=== PATIENT | female | born 1990 | race Caucasian/White ===

== ENCOUNTER 2016-12-14 20:59 | Emergency (ER) | payer OTHER ==
[~2016-12-14] VITALS: Ht 170.2 cm; Wt 128.9 kg
[2016-12-14] MEDS ORDERED: SODIUM CHLORIDE FLUSH 3 ML SYR IV PRN (21:30)
[2016-12-14] MEDS ORDERED: LORazepam 2 MG/ML (ATIVAN) 1 ML VIAL IV ONE (21:30)
[2016-12-14] MEDS ORDERED: SODIUM CHLORIDE FLUSH 10 ML SYR IV PRN (21:30)
[2016-12-14] MEDS ORDERED: ONDANSETRON 2 MG/ML (Z0FRAN) 2 ML VIAL IV ONE (21:30)
[2016-12-14 21:47] LABS: MEAN CORPUSCULAR HEMOGLOBIN 30.1 PG (26.0-34.0); MEAN CORPUSCULAR HGB CONC 35.1 g/dL (31.0-37.0); MEAN CORPUSCULAR VOLUME 86 FL (80-100); MEAN PLATELET VOLUME 9.8 FL (6.0-9.5); PLATELET COUNT 225 10^3uL (150-450)
[2016-12-14 22:12] LABS: ALBUMIN 4.5 g/dL (3.4-5.0); ALKALINE PHOSPHATASE 59 U/L (38-126); ANION GAP 15.6 MEQ/L (3-15); BUN/CREATININE RATIO 16 (10-20); CALCULATED IONIZED CALCIUM 3.5 mg/dL (3.8-4.6); TOTAL PROTEIN 8.9 g/dL (6.4-8.5)
[2016-12-14 22:20] LABS: ANISOCYTOSIS SLIGHT; BAND NEUTROPHILS % 0 % (0-6); EOSINOPHILS % 0 % (0-4); LYMPHOCYTES # 5.9 #; MONOCYTES # 0.5 #; MONOCYTES % 5 % (3-11); POIKILOCYTOSIS SLIGHT; RBC MORPH SEE REFERENCE (NORMAL); SEGMENTED NEUTROPHILS % 38 % (51-67); TOTAL CELLS COUNTED 100
[2016-12-14 23:24] VITALS: BP 118/70
== END 2016-12-14 23:20 | disposition home or self-care (01) ==
LOC: ED 21:00
DX: F41.9 Anxiety disorder, unspecified (principal); F17.210 Nicotine dependence, cigarettes, uncomplicated; R07.89 Other chest pain
CPT/HCPCS: 36415; 71010; 80053; 84484; 85025; 85379; 93005; 96361; 96374; 96375; 99283; J2060; J2405; J7030; 93010; 99284

== ENCOUNTER → 2016-12-21 | Outpatient (REF) | payer OTHER ==
[2016-12-21 12:21] LABS: BILIRUBIN,URINE Negative (Negative); COLOR,URINE Yellow; GLUCOSE, URINE (UA) Negative (Negative); LEUKOCYTE ESTERASE, URINE Trace (Negative); PH,URINE 6.5 (5.0 - 8.0); UROBILINOGEN,URINE 0.2 mg/dL (0.2-1.0)
[2016-12-21 12:23] LABS: CLARITY,URINE Slightly Cloudy; URINE CENTRIFUGED VOLUME 12 mL
== END ==
LOC: LAB 11:57
PROVIDERS: ATTEND Obstetrics & Gynecology
DX: N92.6 Irregular menstruation, unspecified (principal)
CPT/HCPCS: 81003; 81015; 87210

== ENCOUNTER 2017-01-28 12:03 | Emergency (ER) | payer OTHER ==
[~2017-01-28] VITALS: Ht 170.2 cm; Wt 129.0 kg
[~2017-01-28 12:03] MED LIST: AZIT250T81 PO; BUSP10TA95 PO; DOCU-34 PO; DOXY25TA35 PO; DVL500TSR PO; METH40VI; MINO100C2 PO; NFPROP80LA PO; NORG1TAB14 PO; OMEP20TA33 PO; ONDN4T PO; PRED20TA PO; SERT50TA2 PO
[2017-01-28 12:06] VITALS: BP 155/101
--- OUTSIDE RECORDS SUMMARY | 2017-01-28 12:08 | XMS REPORT | Continuity of Care Document ---
Author Author [facility] Address Unknown Phone Unavailable Allergies Active Description Code Type Severity Reaction Onset Reported/Identified Relationship to Patient Clinical Status Yes No Known Drug Allergies [id number] Drug Allergy Unknown N/ A 12/14/2016 Medications Problems Date Dx Coded Attending Type Code Diagnosis Diagnosed By 07/12/2012 Ot 305.00 07/12/2012 Ot 305.1 07/12/2012 Ot 780.4 07/12/2012 Ot 780.79 07/07/2015 ELE TOMLINSON, ELLEN Salazar Ot I10 ESSENTIAL (PRIMARY) HYPERTENSION 07/07/2015 ELE TOMLINSON, ELLEN Salazar Ot R51 HEADACHE 07/07/2015 ELE TOMLINSON, ELLEN Salazar Ot Z87.891 PERSONAL HISTORY OF NICOTINE DEPENDENCE 06/08/2016 MARIZOL DOVER Ot K52.9 NONINFECTIVE GASTROENTERITIS AND COLITIS 06/08/2016 MARIZOL DOVER Ot S56.911A STRAIN OF [facility]/FASC/TEND AT FORARM 06/08/2016 MARIZOL DOVER Ot X58.XXXA EXPOSURE TO OTHER SPECIFIED FACTORS, INI 06/22/2016 MARIZOL DOVER Ot K52.9 NONINFECTIVE GASTROENTERITIS AND COLITIS 06/22/2016 MARIZOL DOVER Ot S56.911A STRAIN OF [facility]/FASC/TEND AT FORARM 06/22/2016 MARIZOL DOVER Ot X58.XXXA EXPOSURE TO OTHER SPECIFIED FACTORS, INI 07/17/2016 KAMALA TOMLINSON, MEL Raymundo Ot R10.84 GENERALIZED ABDOMINAL PAIN 07/17/2016 KAMALA TOMLINSON, MEL Raymundo Ot R13.19 OTHER DYSPHAGIA 07/17/2016 MEL WRAY MD Ot Z01.812 ENCOUNTER FOR PREPROCEDURAL LABORATORY E 07/27/2016 KAMALA TOMLINSON, MEL Raymundo Ot R10.84 GENERALIZED ABDOMINAL PAIN 07/27/2016 MEL WRAY MD Ot R13.19 OTHER DYSPHAGIA 07/27/2016 MEL WRAY MD Ot Z01.812 ENCOUNTER FOR PREPROCEDURAL LABORATORY E 09/13/2016 CHARLETTE SHERWOOD JOSE Akins Ot Z79.899 OTHER [employer] (CURRENT) DRUG THERAPY 10/05/2016 ANTON DOVERICA D Ot K52.9 NONINFECTIVE GASTROENTERITIS AND COLITIS 10/05/2016 CHRISTINE SHERWOOD MARIZOL D Ot S56.911A STRAIN OF [facility]/FASC/TEND AT FORARM 10/05/2016 ANTON DOVERICA D Ot X58.XXXA EXPOSURE TO OTHER SPECIFIED FACTORS, INI 10/05/2016 MEL WRAY MD Ot R10.84 GENERALIZED ABDOMINAL PAIN 10/05/2016 MEL WRAY MD Ot R13.19 OTHER DYSPHAGIA 10/05/2016 MEL WRAY MD Ot Z01.812 ENCOUNTER FOR PREPROCEDURAL LABORATORY E 10/05/2016 CHARLETTE SHERWOOD JOSE Akins Ot Z79.899 OTHER [employer] (CURRENT) DRUG THERAPY 10/10/2016 ANTON DOVERICA D Ot R05 COUGH 10/10/2016 ANTON DOVERICA D Ot R09.89 OTH SYMPTOMS AND SIGNS INVOLVING THE CIR 11/01/2016 CHRISTINE SHERWOOD MARIZOL D Ot R05 COUGH 11/01/2016 CHRISTINE SHERWOOD MARIZOL D Ot R09.89 OTH SYMPTOMS AND SIGNS INVOLVING THE CIR 12/14/2016 RAFAT TOMLINSON, TIGRE Ot F17.210 NICOTINE DEPENDENCE, CIGARETTES, UNCOMPL 12/14/2016 RAFAT TOMLINSON, TIGRE Ot F41.9 ANXIETY DISORDER, UNSPECIFIED 12/14/2016 RAFAT TOMLINSON, TIGRE Ot R07.89 OTHER CHEST PAIN 12/14/2016 TIGRE DOUGLASS MD Ot R07.9 CHEST PAIN, UNSPECIFIED 12/15/2016 ANTON DOVERICA D Ot K52.9 NONINFECTIVE GASTROENTERITIS AND COLITIS 12/15/2016 ANTON DOVERICA D Ot S56.911A STRAIN OF [facility]/FASC/TEND AT FORARM 12/15/2016 ANTON DOVERICA D Ot X58.XXXA EXPOSURE TO OTHER SPECIFIED FACTORS, INI 12/15/2016 MEL WRAY MD Ot R10.84 GENERALIZED ABDOMINAL PAIN 12/15/2016 MEL WRAY MD Ot R13.19 OTHER DYSPHAGIA 12/15/2016 KAMALA TOMLINSON, MEL W Ot Z01.812 ENCOUNTER FOR PREPROCEDURAL LABORATORY E 12/15/2016 CHARLETTE SHERWOOD, JOSE Akins Ot Z79.899 OTHER [employer] (CURRENT) DRUG THERAPY 12/15/2016 MARIZOL DOVER Ot R05 COUGH 12/15/2016 MARIZOL DOVER Ot R09.89 OTH SYMPTOMS AND SIGNS INVOLVING THE CIR 12/18/2016 TIGRE DOUGLASS MD, Ot F17.210 NICOTINE DEPENDENCE, CIGARETTES, UNCOMPL 12/18/2016 TIGRE DOUGLASS MD, Ot F41.9 ANXIETY DISORDER, UNSPECIFIED 12/18/2016 TIGRE DOUGLASS MD, Ot R07.89 OTHER CHEST PAIN 12/18/2016 TIGRE DOUGLASS MD, Ot R07.9 CHEST PAIN, UNSPECIFIED 12/25/2016 LEROY DASILVA MD, Ot N92.6 IRREGULAR MENSTRUATION, UNSPECIFIED 01/03/2017 LEROY DASILVA MD, Ot N92.6 IRREGULAR MENSTRUATION, UNSPECIFIED Procedures Results Test Result Range Choriogonadotropin ( test) - 07/11/16 10:20 Choriogonadotropin ( test) Negative Negative Serum or plasma valproate measurement (mass/volume) - 08/24/16 11:56 Serum or plasma valproate measurement (mass/volume) 11 50-100 Complete blood count (CBC) with automated white blood cell (WBC) differential - 12/14/16 21:28 Blood automated leukocyte count 10.30 4.0-11.0 Erythrocytes 4.91 4.00-5.00 12.0-16.0;g/dL 14.8 12.0-15.5 Hematocrit 42.20 35.00-45.00 Automated erythrocyte mean corpuscular volume 86 80-100 Mean corpuscular hemoglobin (MCH) determination 30.1 26.0-34.0 Automated erythrocyte mean corpuscular hemoglobin concentration measurement ( mass/volume) 35.1 31.0-37.0 Erythrocyte distribution width 12.1 11.8 -15.6 Automated blood platelet count 225 150- 450 Automated blood platelet mean volume measurement 9.8 6.0-9.5 D-dimer test - 12/14/16 21:28 D-dimer test 294 0-500 Complete blood count, platelets with manual differential - 12/14/16 21:28 Total cell count 100 Blood segmented neutrophils percentage 38 51-67 Blood band neutrophil count as percentage of total leukocytes 0 0-6 LYMPHOCYTES % 57 20-46 Automated monocyte percentage 5 3-11 Eosinophil count auto 0 0-4 Basophils 0 0-2 Manual blood metamyelocytes/100 leukocytes 0 0-1 NEUTROPHILS(SEG) 3.9 NEUTROPHILS # BANDS 0.0 Blood lymphocytes manual count (number/volume) 5.9 Automated blood monocyte count 0.5 Blood absolute eosinophil count 0.0 Basophils 0.0 Erythrocyte morphology assessment SEE REFERENCE NORMAL Blood poikilocytosis detection by light microscopy SLIGHT Blood anisocytosis detection SLIGHT Comprehensive metabolic panel - 12/14/16 21:28 Sodium measurement 89 70-110 CARBON DIOXIDE 22 22-29 Serum or plasma anion gap 15.6 3-15 BLOOD UREA NITROGEN 12 7-18 CREATININE SERUM 0.75 0.6-1.2 Brucella species antibody panel (IgG, IgM) 16 10-20 Estimated glomerular filtration rate (GFR) 112.2 Estimated glomerular filtration rate (GFR) non- 92.7 OSMOLALITY,CALCULATED 267 280-300 CALCIUM 9.2 8.8-10.8 Calculated ionized calcium measurement 3.5 3.8-4.6 BILIRUBIN,TOTAL 1.4 0.1-1.0 Serum or plasma alkaline phosphatase measurement 59 38-126 ASPARTATE AMINO TRANSFERASE 51 15-37 ALANINE AMINOTRANSFERASE 29 30-65 Serum or plasma total protein measurement 8.9 6.4-8.5 Serum or plasma albumin measurement 4.5 3.4-5.0 Serum or plasma albumin/globulin mass ratio 1.022 1.1-1.8 TROPONIN I* - 12/14/16 21:28 TROPONIN I < 0.012 0.010-0.080 UA (urinalysis) - 12/21/16 10:55 COLLECTION METHOD CLEAN CATCH Color of urine by auto Yellow Urine appearance determination Slightly Cloudy Urine pH measurement by automated test strip 6.5 5.0 - 8.0 Specific gravity of urine by automated test strip <= 1.005-1.030 PROTEIN, URINE Negative Urine glucose detection by automated test strip Negative Negative Urine erythrocytes count by automated test strip (number/volume) Negative Negative Urine ketones detection by automated test strip Negative Negative NITRITE,URINE Negative Negative Urine total bilirubin detection by automated test strip Negative Negative Urine urobilinogen measurement by automated test strip (mass/volume) 0.2 0.2-1.0 Urine leukocyte esterase detection by dipstick Trace Negative Microscopic examination of urine - 12/21/16 10:55 Urine volume measurement 12 mL Urine erythrocytes detection by automated method 2-5 Automated urine sediment leukocyte count by microscopy (number/high power field ) Bacteria 2+ Negative SQUAMOUS EPITHELIAL CELL,UR 50-100 Encounters ACCT No. Visit Date/Time Discharge Status Pt. Type Provider Facility Loc./Unit Complaint [id number] 12/14/2016 21:00:00 2016 23:20:00 DIS Emergency RAFAT TOMLINSON, [facility] ED [id number] 07/07/2015 01:37:00 2014 03:05:00 DIS Emergency ELE TOMLINSON, [facility] ED HSB [id number] 12/21/2016 11:57:00 ACT Outpatient VIDYA TOMLINSON, [facility] LAB LAB DROP OFF DR DASILVA [id number] 10/05/2016 15:02:00 ACT Outpatient CHRISTINE SHERWOOD [facility] [id number] 08/24/2016 11:51:00 ACT Outpatient CHARLETTE SHERWOOD, [facility] LAB [id number] 07/11/2016 08:58:00 [facility] / DYSPHAGIA [id number] 05/24/2016 19:49:00 ACT Outpatient CHRISTINE SHERWOOD [facility] [id number] 07/12/2012 13:37:00 Document Registration
--- OUTSIDE RECORDS SUMMARY | 2017-01-28 12:09 | XMS REPORT | Continuity of Care Document ---
Author Author [facility] Address Unknown Phone Unavailable Allergies Active Description Code Type Severity Reaction Onset Reported/Identified Relationship to Patient Clinical Status Yes No Known Drug Allergies [id number] Drug Allergy Unknown N/ A 12/14/2016 Medications [...] 06/08/2016 MARIZOL DOVER Ot S56.911A STRAIN OF [facility]/FASC/TEND AT FORARM 06/08/2016 MARIZOL DOVER Ot X58.XXXA EXPOSURE TO OTHER SPECIFIED FACTORS, INI 06/22/2016 MARIZOL DOVER Ot K52.9 NONINFECTIVE GASTROENTERITIS AND COLITIS 06/22/2016 MARIZOL DOVER Ot S56.911A STRAIN OF [facility]/FASC/TEND AT FORARM 06/22/2016 MARIZOL DOVER Ot X58.XXXA [...] CHARLETTE SHERWOOD JOSE Akins Ot Z79.899 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 10/05/2016 ANTON DOVERICA D Ot K52.9 NONINFECTIVE GASTROENTERITIS AND COLITIS 10/05/2016 CHRISTINE SHERWOOD MARIZOL D Ot S56.911A STRAIN OF [facility]/FASC/TEND AT FORARM 10/05/2016 ANTON DOVERICA D Ot X58.XXXA EXPOSURE TO OTHER SPECIFIED FACTORS, INI 10/05/2016 MEL WRAY MD Ot R10.84 GENERALIZED ABDOMINAL PAIN 10/05/2016 MEL WRAY MD Ot R13.19 OTHER DYSPHAGIA 10/05/2016 MEL WRAY MD Ot Z01.812 ENCOUNTER FOR PREPROCEDURAL LABORATORY E 10/05/2016 CHARLETTE SHERWOOD JOSE Akins Ot Z79.899 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 10/10/2016 ANTON DOVERICA D Ot R05 COUGH 10/10/2016 ANTON DOVERICA D Ot R09.89 OTH SYMPTOMS AND SIGNS INVOLVING THE CIR 11/01/2016 CHRISTINE SHERWOOD MARIZOL D Ot R05 COUGH 11/01/2016 CHRISTINE SHERWOOD MARIZOL D Ot R09.89 OTH SYMPTOMS AND SIGNS INVOLVING THE CIR 12/14/2016 RFAAT TOMLINSON, TIGRE Ot F17.210 NICOTINE DEPENDENCE, CIGARETTES, UNCOMPL 12/14/2016 RAFAT TOMLINSON, TIGRE Ot F41.9 ANXIETY DISORDER, UNSPECIFIED 12/14/2016 RAFAT TOMLINSON, TIGRE Ot R07.89 OTHER CHEST PAIN 12/14/2016 TIGRE DOUGLASS MD Ot R07.9 CHEST PAIN, UNSPECIFIED 12/15/2016 ANTON DOVERICA D Ot K52.9 NONINFECTIVE GASTROENTERITIS AND COLITIS 12/15/2016 ANTON DOVERICA D Ot S56.911A STRAIN OF [facility]/FASC/TEND AT FORARM 12/15/2016 ANTON DOVERICA D Ot X58.XXXA EXPOSURE TO OTHER SPECIFIED FACTORS, INI 12/15/2016 MEL WRAY MD Ot R10.84 GENERALIZED ABDOMINAL PAIN 12/15/2016 MEL WRAY MD Ot R13.19 OTHER DYSPHAGIA 12/15/2016 KAMALA TOMLINSON, MEL W Ot Z01.812 ENCOUNTER FOR PREPROCEDURAL LABORATORY E 12/15/2016 CHARLETTE SHERWOOD, JOSE Akins Ot Z79.899 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 12/15/2016 MARIZOL DOVER Ot [...] Status Pt. Type Provider Facility Loc./Unit Complaint [id number] 12/14/2016 21:00:00 2016 23:20:00 DIS Emergency RAFAT TOMLINSON, [facility] ED [id number] 07/07/2015 01:37:00 2014 03:05:00 DIS Emergency ELE TOMLINSON, [facility] ED HSB [id number] 12/21/2016 11:57:00 ACT Outpatient VIDYA TOMLINSON, [facility] LAB LAB DROP OFF DR DASILVA [id number] 10/05/2016 15:02:00 ACT Outpatient CHRISTINE SHERWOOD [facility] [id number] 08/24/2016 11:51:00 ACT Outpatient CHARLETTE SHERWOOD, [facility] LAB [id number] 07/11/2016 08:58:00 [facility] / DYSPHAGIA [id number] 05/24/2016 19:49:00 ACT Outpatient CHRISTINE SHERWOOD [facility] [id number] 07/12/2012 13:37:00 Document Registration
[2017-01-28 12:30] LABS: BASOPHILS % (AUTO) 1 % (0-2); EOSINOPHILS # (AUTO) 0.1 10^3uL; EOSINOPHILS % (AUTO) 1 % (0-4); LYMPHOCYTES # (AUTO) 3.8 X10^3; MEAN CORPUSCULAR HGB CONC 35.1 g/dL (31.0-37.0); MEAN CORPUSCULAR VOLUME 86 FL (80-100); MEAN PLATELET VOLUME 9.5 FL (6.0-9.5); MONOCYTES # (AUTO) 0.7 X10^3; MONOCYTES % (AUTO) 9 % (3-11); NEUTROPHILS # (AUTO) 3.4 X10^3; NEUTROPHILS % (AUTO) 42 % (51-67); PLATELET COUNT 242 10^3uL (150-450); WHITE BLOOD COUNT 8.03 10^3uL (4.0-11.0)
--- NOTE | 2017-01-28 12:30 | NUR ---
Patient's friend (Gudelia) in room with patient. Friend is very supportive, attentive to pt, and appears responsible. Friend verbalizes that she is willing to have patient stay with her and to assist her through this situation.
--- NOTE | 2017-01-28 12:30 | NUR ---
Large styrofoam glass of Iced Water provided to patient after michael received from Dr. Long.
[2017-01-28 12:33] LABS: BILIRUBIN,URINE Negative (Negative); CLARITY,URINE Clear; COLOR,URINE Yellow; GLUCOSE, URINE (UA) Negative (Negative); LEUKOCYTE ESTERASE ,URINE Trace (Negative); PH,URINE 6.5 (5.0 - 8.0); UROBILINOGEN,URINE 0.2 mg/dL (0.2-1.0)
[2017-01-28 12:39] LABS: RBC,URINE 0-2 /HPF; URINE CENTRIFUGED VOLUME 12 mL
[2017-01-28 12:41] LABS: AMPHETAMINE SCREEN, URINE Negative (Negative); CANNABINOID SCREEN, URINE Negative (Negative); METHAMPHETAMINE SCREEN URINE S NEGATIVE (NEGATIVE); OPIATE SCREEN URINE Negative (Negative); PROPOXYPHENE STAT NEGATIVE (NEGATIVE)
[2017-01-28 12:45] LABS: ALBUMIN 4.5 g/dL (3.4-5.0); ALKALINE PHOSPHATASE 60 U/L (38-126); BUN/CREATININE RATIO 13 (10-20); CALCULATED IONIZED CALCIUM 4.1 mg/dL (3.8-4.6)
[2017-01-28] MEDS ORDERED: NORG1TAB30 PO (12:56)
[2017-01-28] MEDS ORDERED: VILA10TA PO (12:59)
[2017-01-28] MEDS ORDERED: BUSP7.5T3 PO (13:01)
[2017-01-28] MEDS ORDERED: LORA0.5T PO (13:07)
--- NOTE | 2017-01-28 13:45 | NUR ---
Patient provided with meal tray (sandwich, chips, cookie, Diet Coke) after MD's permission obtained.
[2017-01-28] MEDS ORDERED: ACETAMINOPHEN 500 MG TAB (TYLENOL) PO ONE (13:50)
[2017-01-28] MEDS ORDERED: TEMA30CA6 PO (14:50)
--- NOTE | 2017-01-28 15:40 | NUR ---
After numerous calls to and from [place], arrangements have been made, with help of Yanci Wolfe, for patient to start their "Partial Hospitalization" program at [facility]. Pt has agreed to this and verbalizes understanding of need to be at Admissions tomorrow at 0745 for check in . Pt's friend has agreed to help get her there and to assist with transportation as needed over the next few days. Pt seems relieved to have something in place. Verbalizes understanding she needs help and that this program, as described, seems to be a "good thing". Pt denies suicidal ideation or plan at this time.
== END 2017-01-28 15:43 | disposition home or self-care (01) ==
LOC: ED 12:04
DX: F33.1 Major depressive disorder, recurrent, moderate (principal)
CPT/HCPCS: 36415; 80053; 80307; 80320; 80329; 81003; 81015; 84443; 84703; 85025; 87088; 99282; 99283